=== PATIENT | female | born 1965 | race Caucasian/White ===

== ENCOUNTER 2016-06-04 08:49 | Emergency (ER) | payer OTHER ==
[2016-06-04] MEDS ORDERED: IPRATROPIUM/ALBUTEROL 3 ML DEYVIAL IH ONE (09:07)
[2016-06-04] MEDS ORDERED: predniSONE 20 MG TAB PO ONE (09:10)
--- NOTE | 2016-06-04 09:21 | EDPHY ---
H & P Smoking Status: Never smoked Time Seen by Provider: 06/04/16 09:09 HPI/ROS: CHIEF COMPLAINT: I think I have the flu HISTORY OF PRESENT ILLNESS: 50-year-old female Indian speaking only, usage of cap inspector at bedside, complaining of 7 days of cough, congestion, dyspnea. She has prior history of asthma. Does not have an inhaler. The triage note states chest pain. Specifically inquired at time of interview was she has chest pain she denies this. No back pain. No abdominal pain. No cardiac history. No thromboembolic history. REVIEW OF SYSTEMS: A ten point review of systems was performed and is negative with the exception of the items mentioned in the HPI PAST MEDICAL & SURGICAL HISTORY: Asthma. No influenza vaccination this season SOCIAL HISTORY: nonsmoker. No cocaine or illicit drug use. FAMILY HISTORY: No family history of coronary artery disease/AK/coagulopathic disorder PHYSICAL EXAM (Prior to examination, patient consented to physical exam, hands were washed and my usual and customary physical exam procedures followed) 1) GENERAL: Well-developed, well-nourished, alert and oriented. Appears nontoxic 2) HEAD: Normocephalic, atraumatic 3) HEENT: Pupils equal, round, reactive to light bilaterally. Sclera anicteric. Nasopharynx: Congestion. Oropharynx: Clear no trismus no drooling no tonsillar enlargement or exudate Ears bilaterally with normal tympanic membranes. 4) NECK: Full range of motion, no meningeal signs. 5) LUNGS: bilateral end-expiratory wheeze. no rhonchi, no retractions. 6) HEART: Regular rate and rhythm, no murmur, no heave, no gallop. 7) ABDOMEN: No guarding, no rebound, no focal tenderness, negative McBurney's, negative Tillman's, negative Rovsing's, negative peritoneal sign, 8) MUSCULOSKELETAL: Moving all extremities, no focal areas of tenderness, no obvious trauma. No peripheral edema or discoloration. 9) BACK: No CVA tenderness, no midline vertebral tenderness, no fluctuance, no step-off, no obvious trauma, no visual or palpable abnormality. 10) SKIN: No rash, no petechiae. DIFFERENTIAL DIAGNOSIS: In no particular include but limited to pulmonary embolus, pneumonia, bronchitis, influenza (Yennifer Arauz Krystina) Constitutional: Initial Vital Signs Temperature (C) 36.7 C 06/04/16 08:50 Heart Rate 69 06/04/16 08:50 Respiratory Rate 18 06/04/16 08:50 Blood Pressure 145/81 H 06/04/16 08:50 O2 Sat (%) 95 06/04/16 08:50 O2 Delivery Mode Room Air Allergies/Adverse Reactions: No Known Allergies Allergy (Verified 06/04/16 08:50) Home Medications: Medication Instructions Recorded AZITHROMYCIN [Z-PACK] 500 mg PO DAILY #1 packet 06/04/16 Albuterol Sulfate [Proventil Hfa] 6.7 gm IH 06/04/16 Albuterol [Proventil Inhaler HFA 1 - 2 puffs IH Q4PRN PRN #1 mdi 06/04/16 (*)] Tiotropium Inhaler [Spiriva 18 mcg IH DAILY 06/04/16 Handihaler] predniSONE [Prednisone] 60 mg PO DAILY #9 tablet 06/04/16 MDM/Departure - MDM Diagnostics: An EKG obtained and was read and documented in trace view. Please see trace view for full reading and report. Sinus rhythm, no ischemic changes. (Kale Brennan) Medications Given: Discontinued Medications Albuterol/Ipratropium (Duoneb) 3 ml IH EDNOW ONE Stop: 06/04/16 09:08 Last Admin: 06/04/16 09:30 Dose: 3 ml Prednisone (Prednisone) 60 mg PO EDNOW ONE Stop: 06/04/16 09:11 Last Admin: 06/04/16 09:30 Dose: 60 mg ED Course/Re-evaluation: 10:38 a.m.: Patient re-evaluated after DuoNeb treatment states that she is feeling improvement in her dyspnea. She initially stated that she had not been experiencing chest pain at this time however she informs me that for the past 4 days she has been experiencing midsternal chest pain which has been persistent. Will obtain further diagnostic studies on patient at this time 11:48 a.m.: Re-evaluation. She is feeling improvement. Discussed her diagnostic studies including negative chest x-ray, EKG, D-dimer, troponin. I think that pulmonary embolus, AK, less than likely in this patient. More than likely etiology of her symptoms acute respiratory etiology. Plan will be discharged with azithromycin, prednisone, albuterol. Usual customary respiratory and chest precautions provided. She feels comfortable being discharged. Discussed case with Dr. Brennan in the ER. (Yennifer Arauz) - Depart Disposition: Home, Routine, Self-Care Clinical Impression: Acute bronchitis Qualifiers: Bronchitis organism: other organism Qualifier Code: (J20.8) Acute bronchitis due to other specified organisms Condition: Good Instructions: Acute Bronchitis (ED) Additional Instructions: Seek medical attention if you develop new or worsening chest pain, if you develop new or worsening shortness of breath, or any other symptoms that concern you. Busque ayuda medica si desarolla dolor de pecho nuevo o si vera empeora, si le falta la respiracion o esta empeora, o cualquier otro sintoma que le preocupe. Prescriptions: Albuterol [Proventil Inhaler HFA (*)] 1 - 2 puffs IH Q4PRN PRN #1 mdi PRN Reason: Cough, Moderate AZITHROMYCIN [Z-PACK] 500 mg PO DAILY #1 packet predniSONE [Prednisone] 60 mg PO DAILY #9 tablet Referrals: [facility] [Outside] - 2-3 days, call for appt. Print Language: Indian
--- NOTE | 2016-06-04 10:12 | DX ---
Chest, PA and Lateral Views June 04, 2016 8:51 a.m. Clinical History: 50-year-old female with chest pain. Comparison Study: Chest, dated February 15, 2014. Findings: The cardiac and mediastinal silhouette is normal. There is no focal infiltrate, atelectasis , pleural effusion, peripheral interstitial edema, or pneumothorax. The lungs are well-expanded, with an inspiratory depth to the 11th posterior rib level. The trachea is midline. The osseous structures are again notable for a couple of mild superior cortical endplate compression deformities, which are unchanged. Impression: No acute abnormality, or substantial change from February 15, 2014.
--- NOTE | 2016-06-04 10:51 | CPEKG ---
Heart Rate: 71 RR Interval: 845 P-R Interval: 152 QRSD Interval: 72 QT Interval: 428 QTC Interval: 466 P [place]: 34 QRS [place]: -1 T Wave [place]: 37 EKG Severity - NORMAL ECG - EKG Impression: SINUS RHYTHM Electronically Signed By: Kale Brennan 04-Jun-2016 11:48:19
[2016-06-04 11:03] LABS: % IMMATURE GRANULYOCYTES 0.4 % (0.0-1.1); ABSOLUTE IMMATURE GRANULOCYTES 0.03 10^3/uL (0.00-0.10); ADD DIFF? NO; ADD MORPH? NO; ADD SCAN? NO; ATYPICAL LYMPHOCYTE FLAG 0 (0-99); FRAGMENT RBC FLAG 0 (0-99); HEMATOCRIT 43.3 % (38.0-47.0); HEMOGLOBIN 15.1 g/dL (12.6-16.3); LEFT SHIFT FLG 0 (0-99); LIPEMIA HEMOLYSIS FLAG 90 (0-99); MEAN CELL HEMOGLOBIN 30.3 pg (27.9-34.1); MEAN CELL HEMOGLOBIN CONCENTR. 34.9 g/dL (32.4-36.7); MEAN CELL VOLUME 86.8 fL (81.5-99.8); MEAN PLATELET VOLUME 9.5 fL (8.7-11.7); PLATELET CLUMPS FLAG 10 (0-99); PLATELET COUNT 252 10^3/uL (150-400); RED BLOOD CELL COUNT 4.99 10^6/uL (4.18-5.33)
[2016-06-04 11:21] LABS: ANION GAP 11 mEq/L (8-16); CALCIUM 8.9 mg/dL (8.5-10.4); CARBON DIOXIDE 25 mEq/l (22-31); CHLORIDE 107 mEq/L (97-110); CREATININE 0.5 mg/dL (0.6-1.0); GLOMERULAR FILTRATION RATE > 60; GLUCOSE 97 mg/dL (70-100); POTASSIUM 4.1 mEq/L (3.5-5.2); SODIUM 143 mEq/L (134-144)
[2016-06-04 11:33] LABS: TROPONIN I < 0.012 ng/mL (0-0.034)
[2016-06-04 12:07] VITALS: BP 143/84; PULSE 78; RESP 16; TEMP 97.9; O2SAT 96
== END 2016-06-04 12:16 | disposition home or self-care (01) ==
DX: J20.8 Acute bronchitis due to other specified organisms (principal); J45.909 Unspecified asthma, uncomplicated

== ENCOUNTER 2016-06-05 16:01 | Emergency (ER) | payer OTHER ==
[2016-06-05] MEDS ORDERED: NS 1,000 ML IV ONE (16:36)
[2016-06-05] MEDS ORDERED: KETOROLAC 30 MG/1 ML SDV IVP ONE (16:36)
[2016-06-05] MEDS ORDERED: METOCLOPRAMIDE 10 MG/2 ML VIAL IVP ONE (16:36)
[2016-06-05] MEDS ORDERED: ONDANSETRON DISINTEGRATING 4 MG TAB PO ONE (16:37)
--- NOTE | 2016-06-05 16:41 | EDPHY ---
H & P Stated Complaint: VALDES Source: Patient - Personal History LMP (Females 10-55): 8-14 Days Ago Current Tetanus/Diphtheria Vaccine: Unsure Current Tetanus Diphtheria and Acellular Pertussis (TDAP): Unsure - Medical/Surgical History Hx Asthma: Yes Hx Chronic Respiratory Disease: No Hx Diabetes: No Hx Cardiac Disease: No Hx Renal Disease: No Hx Cirrhosis: No Hx Alcoholism: No Hx HIV/AIDS: No Hx Splenectomy or Spleen Trauma: No Other PMH: appendectomy, x2, tubal ligation, migraines, asthma - Social History Smoking Status: Never smoked Alcohol Use: None Drug Use: None Time Seen by Provider: 06/05/16 16:37 HPI/ROS: HPI: 50-year-old female presents to emergency department with chief concern migraine headache. Reports a 10/10 throbbing headache in her entire head associated with nausea and photophobia that onset yesterday morning mildly. By yesterday afternoon it grew severe. Was evaluated in the emergency department yesterday and diagnosed with bronchitis. She did not have a headache at that time. Denies physical trauma. Denies fever, dizziness, visual changes, neck pain, shortness of breath, chest pain, abdominal pain, vomiting, diarrhea, rash. No aggravating or alleviating factors. This headache is consistent with other migraine headaches. This is not the worst headache of her life. Her reports that she gets migraine headaches when she gets sick. ROS:10 point review of systems is negative other than as stated in HPI (Yovana Bennett) - Physical Exam Exam: Vital signs stable, reviewed by me General: Awake, calm, cooperative. No acute distress. EENT: PERRLA. EOMI. No papilledema. no conjunctival injection or hemorrhage. TMs intact, translucent. No evidence of bleeding or otorrhea. Nasal septum midline, nasal mucosa pink. no evidence of drainage. Uvula midline, pharynx without redness. Neck: No midline tenderness, full range of motion, no meningismus Resp: Breathing unlabored. Lungs clear to auscultation bilaterally. CV: HRR. S1S2. No MRG. GI: Abdomen soft, nontender. Bowel sounds normoactive and positive x4 quadrants. Back: No midline thoracic or lumbar tenderness. Skin: Warm, dry. No rashes noted. Capillary refill less than 2 seconds. Musculoskeletal: Strength equal and 5+ in all 4 extremities. Neuro: No focal neuro deficit. CN II through XII intact. Rapid alternating hand movements intact. Finger to nose intact. Heel to natarajan intact. Negative Romberg. Negative pronator drift. Gait even and steady. Memory and recall of 2/3 objects at 5 minutes intact. Upper and lower extremity DTRs 2+. Extremities: Full range of motion. (Yovana Bennett) Constitutional: Initial Vital Signs Temperature (C) 36.9 C 06/05/16 16:03 Heart Rate 93 06/05/16 16:03 Respiratory Rate 14 06/05/16 16:03 Blood Pressure 153/94 H 06/05/16 16:03 O2 Sat (%) 95 06/05/16 16:03 O2 Delivery Mode Room Air O2 (L/minute) 2 Allergies/Adverse Reactions: No Known Allergies Allergy (Verified 06/04/16 08:50) Home Medications: Medication Instructions Recorded AZITHROMYCIN [Z-PACK] 500 mg PO DAILY #1 packet 06/04/16 Albuterol Sulfate [Proventil Hfa] 6.7 gm IH 06/04/16 Albuterol [Proventil Inhaler HFA 1 - 2 puffs IH Q4PRN PRN #1 mdi 06/04/16 (*)] Tiotropium Inhaler [Spiriva 18 mcg IH DAILY 06/04/16 Handihaler] predniSONE [Prednisone] 60 mg PO DAILY #9 tablet 06/04/16 oxyCODONE/APAP 5/325 [Percocet 1 - 2 tab PO Q6H PRN #6 tab 06/05/16 5/325 (*)] Medical Decision Making ED Course/Re-evaluation: 1630:50-year-old female presents to emergency department with chief concern migraine headache. Vitals are stable. She has no focal neuro deficits. She has had no head trauma. She is afebrile. She is nontoxic. She has a history of migraine headaches. We will treat her with migraine cocktail as per her old records this has worked in the past. 0: Headache is now 5/10 down from 10/10. Nausea has resolved. Given 1 mL IV Dilaudid. 2014: Headache now 2/10. Nausea entirely resolved. Phlebotomy Manager present. Patient discharged with oral Percocet. Return precautions given. (Yovana Bennett ) Differential Diagnosis: Headache including but not limited to migraine headache, subarachnoid hemorrhage, tension headache and infectious causes such as meningitis, pharyngitis and sinusitis. (Yovana Bennett) Other Provider: This patient was evaluated and treated by the nurse practitioner. I have reviewed the chart and agree with the treatment plan as documented. (Sona Ayon) - Data Points Laboratory Results: Laboratory Results 06/05/16 16:20 06/05/16 16:20 Medications Given: Discontinued Medications Diphenhydramine HCl (Benadryl Injection) 25 mg IVP EDNOW ONE Stop: 06/05/16 16:38 Last Admin: 06/05/16 16:47 Dose: 25 mg Hydromorphone HCl (Dilaudid) 1 mg IVP EDNOW ONE Stop: 06/05/16 17:30 Last Admin: 06/05/16 17:35 Dose: 1 mg Sodium Chloride (Ns) 1,000 mls @ 0 mls/hr IV ONCE ONE PRN Reason: Wide Open Stop: 06/05/16 16:37 Last Admin: 06/05/16 16:48 Dose: 1,000 mls Ketorolac Tromethamine (Toradol) 30 mg IVP EDNOW ONE Stop: 06/05/16 16:37 Last Admin: 06/05/16 16:48 Dose: 30 mg Metoclopramide HCl (Reglan Injection) 10 mg IVP EDNOW ONE Stop: 06/05/16 16:37 Last Admin: 06/05/16 16:48 Dose: 10 mg Ondansetron HCl (Zofran Odt) 4 mg PO EDNOW ONE Stop: 06/05/16 16:38 Last Admin: 06/05/16 16:47 Dose: 4 mg Oxycodone/Acetaminophen (Percocet 5/325mg Prepack#4) 1 btl TAKEHOME EDNOW ONE Stop: 06/05/16 20:14 Last Admin: 06/05/16 20:19 Dose: 1 btl Departure - Departure Disposition: Home, Routine, Self-Care Clinical Impression: Migraine Condition: Good Instructions: Oxycodone/Acetaminophen (By mouth), Migraine Headache (ED) Additional Instructions: Plan: You have a migraine headache. We gave you medicine to abort the headache. No driving today at all. Clear liquids if nauseated-advance to bland diet as tolerated. Return if any symptoms unusual for typical migraine. Rest and cool dark room. Followup with your primary care provider tomorrow-When you call to schedule appointment, please let the office know you are an "ER follow up" appointment" May use 1-2 Percocet every 6 hours as needed--Never drink or drive while taking this medication. This medication impairs decision making capacity so do not work or sign important documents while taking. This medication its constipating so drink plenty of fluids and consider an [id number] stool softener such as docusate sodium (Colace) while taking this medication. This medication has addictive properties. You should use the least amount for the shortest amount of time. [facility] do not refill narcotic pain medication prescriptions. This is a hospital policy. You will need to follow up as indicated for recheck for further narcotic refills. Return promptly for recheck for dizziness, visual changes, worsening headache, fever, neck pain, or intractable vomiting. Plan: Tiene anita migraa. Le administramos medicamento para abortar el dolor. No maneje hoy. - [place] liquidos fernanda si tiene nausea - avance a anita dieta blanda a lori lo pueda tolerar. - Regrese si tiene sintomas inusuales a los de migraa tipica. - Descance en anita habitacion fresca y oscura. - Kaden anita joel de seguimiento con moraes doctor maana, cuando llame para hacer la joel, por favor digales que es anita joel de seguimiento de la huey de emergencia. - Puede scott el Percocet cada 6 horas si lo necesita - Nunca tome alcohol o maneje mientras jose vera medecamento. Vera medicamento afecta la capacidad para scott decisiones asi es que no trabaje o firme documentos importantes mientras lo jose. Vera medicamento tambien estrie, asi es que debe scott muchos liquidos y puede conciderar scott un laxante sin receta lori el ducosate de sodio (Colace) mientras jose vera medicamento. Vera medicamento tieme propiedades adictivas. Debe usar lo menos posible por un corto periodo de tiempo. La huey de emergencia y la huey de urgencias de [facility] no volvemos a recetar narcoticos para dolor. Esta es anita poliza del hospital. Usted necesitara hacer anita joel de seguimiento con moraes doctor a lori se le indico para anita nueva revision y para llenarle la receta de narcoticos. - Regrese antes de moraes joel si tiene mareos, cambios de la vista, si empeora moraes dolor de daphney, si tiene fiebre, dolor en el merlyn, o vomito incontrolable. [place]errals: [place],. [Primary Care Provider] - As per Instructions [facility] [Outside] - As per Instructions Prescriptions: oxyCODONE/APAP 5/325 [Percocet 5/325 (*)] 1 - 2 tab PO Q6H PRN #6 tab PRN Reason: Pain, Severe Print Language: Montenegrin
[2016-06-05 16:47] LABS: % IMMATURE GRANULYOCYTES 0.5 % (0.0-1.1); ABSOLUTE IMMATURE GRANULOCYTES 0.06 10^3/uL (0.00-0.10); ADD DIFF? NO; ADD MORPH? NO; ADD SCAN? NO; ATYPICAL LYMPHOCYTE FLAG 0 (0-99); FRAGMENT RBC FLAG 0 (0-99); HEMATOCRIT 46.5 % (38.0-47.0); HEMOGLOBIN 16.3 g/dL (12.6-16.3); LEFT SHIFT FLG 0 (0-99); LIPEMIA HEMOLYSIS FLAG 90 (0-99); MEAN CELL HEMOGLOBIN 30.8 pg (27.9-34.1); MEAN CELL HEMOGLOBIN CONCENTR. 35.1 g/dL (32.4-36.7); MEAN CELL VOLUME 87.9 fL (81.5-99.8); MEAN PLATELET VOLUME 9.5 fL (8.7-11.7); PLATELET CLUMPS FLAG 0 (0-99); PLATELET COUNT 312 10^3/uL (150-400); RED BLOOD CELL COUNT 5.29 10^6/uL (4.18-5.33); RED CELL DISTRIBUTION WIDTH 12.1 % (11.5-15.2)
[2016-06-05 16:52] LABS: ANION GAP 14 mEq/L (8-16); CALCIUM 9.7 mg/dL (8.5-10.4); CARBON DIOXIDE 22 mEq/l (22-31); CHLORIDE 106 mEq/L (97-110); CREATININE 0.5 mg/dL (0.6-1.0); GLOMERULAR FILTRATION RATE > 60; GLUCOSE 134 mg/dL (70-100); POTASSIUM 4.5 mEq/L (3.5-5.2); SODIUM 142 mEq/L (134-144)
[2016-06-05] MEDS ORDERED: HYDROmorphONE/DILAUDID 1 MG/ML SYR IVP ONE (17:29)
[2016-06-05] MEDS ORDERED: OXYCODONE/APAP 5/325MG PREPACK#4 BTL TAKEHOME ONE (20:13)
[2016-06-05 20:49] VITALS: BP 128/87; PULSE 71; RESP 16; TEMP 98.1; O2SAT 93
== END 2016-06-05 20:49 | disposition home or self-care (01) ==
DX: G43.909 Migraine, unspecified, not intractable, without status migrainosus (principal); J45.909 Unspecified asthma, uncomplicated
CPT/HCPCS: 96374; J1170; J1885; J2765

== ENCOUNTER 2016-06-26 08:38 | Emergency (ER) | payer OTHER ==
[2016-06-26 08:43] VITALS: TEMP 98.2
[2016-06-26] MEDS ORDERED: ONDANSETRON 4 MG/2 ML VIAL IVP ONE ×2 (08:59→13:01)
[2016-06-26] MEDS ORDERED: fentaNYL 100 MCG/2 ML INJ IVP ONE (08:59)
[2016-06-26] MEDS ORDERED: NS 1,000 ML IV ONE (09:09)
[2016-06-26 09:12] LABS: COLOR RED; LEUKOCYTE ESTERASE,URINE 1+ (NEGATIVE); NITRITE,URINE NEGATIVE (NEGATIVE)
[2016-06-26 09:14] LABS: % IMMATURE GRANULYOCYTES 0.1 % (0.0-1.1); ABSOLUTE IMMATURE GRANULOCYTES 0.01 10^3/uL (0.00-0.10); ADD DIFF? NO; ADD MORPH? NO; ADD SCAN? NO; ATYPICAL LYMPHOCYTE FLAG 0 (0-99); FRAGMENT RBC FLAG 0 (0-99); HEMATOCRIT 42.7 % (38.0-47.0); HEMOGLOBIN 14.6 g/dL (12.6-16.3); LEFT SHIFT FLG 0 (0-99); LIPEMIA HEMOLYSIS FLAG 90 (0-99); MEAN CELL HEMOGLOBIN 30.2 pg (27.9-34.1); MEAN CELL HEMOGLOBIN CONCENTR. 34.2 g/dL (32.4-36.7); MEAN CELL VOLUME 88.4 fL (81.5-99.8); MEAN PLATELET VOLUME 9.1 fL (8.7-11.7); PLATELET CLUMPS FLAG 0 (0-99); PLATELET COUNT 262 10^3/uL (150-400); RED BLOOD CELL COUNT 4.83 10^6/uL (4.18-5.33); RED CELL DISTRIBUTION WIDTH 12.4 % (11.5-15.2)
[2016-06-26 09:21] LABS: BACTERIA TRACE /hpf (NONE SEEN); RBC,URINE 50-182 /hpf (0-3)
[2016-06-26 09:27] LABS: ANION GAP 9 mEq/L (8-16); CALCIUM 8.6 mg/dL (8.5-10.4); CARBON DIOXIDE 22 mEq/l (22-31); CHLORIDE 108 mEq/L (97-110); CREATININE 0.5 mg/dL (0.6-1.0); GLOMERULAR FILTRATION RATE > 60; GLUCOSE 95 mg/dL (70-100); POTASSIUM 4.2 mEq/L (3.5-5.2); SODIUM 139 mEq/L (134-144)
--- NOTE | 2016-06-26 09:35 | EDPHY ---
H & P Stated Complaint: R flank & RLQ pain denies urinary issues Time Seen by Provider: 06/26/16 09:26 HPI/ROS: CHIEF COMPLAINT: Right flank to right abdomen pain HISTORY OF PRESENT ILLNESS: 50-year-old female complaining of 5 days of right flank to right abdominal pain. No fever no chills. No dysuria no increased urinary frequency. Positive nausea. No vomiting. Bowel movements normal. She does have mild vaginal spotting. No fever or chills. No rash. No trauma. PRIMARY CARE PROVIDER: [facility] REVIEW OF SYSTEMS: A ten point review of systems was performed and is negative with the exception of the items mentioned in the HPI PAST MEDICAL & SURGICAL HISTORY: no abdominal surgery history SOCIAL HISTORY: nonsmoker PHYSICAL EXAM (Prior to examination, patient consented to physical exam, hands were washed and my usual and customary physical exam procedures followed) 1) GENERAL: Well-developed, well-nourished, alert and oriented. Appears uncomfortable 2) HEAD: Normocephalic, atraumatic 3) HEENT: Pupils equal, round, reactive to light bilaterally. Sclera anicteric. 4) NECK: Full range of motion, no meningeal signs. 5) LUNGS: Clear auscultation bilaterally, no wheezes, no rhonchi, no retractions. 6) HEART: Regular rate and rhythm, no murmur, no heave, no gallop. 7) ABDOMEN: No guarding, no rebound, no focal tenderness, negative McBurney's, negative Tillman's, negative Rovsing's, negative peritoneal sign, I am unable to elicit any abdominal pain on exam 8) MUSCULOSKELETAL: Moving all extremities, no focal areas of tenderness, no obvious trauma. No peripheral edema or discoloration. 9) BACK: positive left CVA tenderness, no midline vertebral tenderness, no fluctuance, no step-off, no obvious trauma, no visual or palpable abnormality. 10) SKIN: No rash, no petechiae. 11) Psychiatric: Patient is oriented X 3, there is no agitation. DIFFERENTIAL DIAGNOSIS: in no particular order including but limited to nephrolithiasis, pyelonephritis, acute cholecystitis - Personal History LMP (Females 10-55): 8-14 Days Ago Current Tetanus/Diphtheria Vaccine: Unsure Current Tetanus Diphtheria and Acellular Pertussis (TDAP): Unsure - Medical/Surgical History Hx Asthma: Yes Hx Chronic Respiratory Disease: No Hx Diabetes: No Hx Cardiac Disease: No Hx Renal Disease: No Hx Cirrhosis: No Hx Alcoholism: No Hx HIV/AIDS: No Hx Splenectomy or Spleen Trauma: No Other PMH: appendectomy, x2, tubal ligation, migraines, asthma - Social History Smoking Status: Never smoked Constitutional: Initial Vital Signs Temperature (C) 36.8 C 06/26/16 08:40 Heart Rate 81 06/26/16 08:40 Respiratory Rate 16 06/26/16 08:40 Blood Pressure 130/78 H 06/26/16 08:40 O2 Sat (%) 96 06/26/16 08:40 O2 Delivery Mode Nasal Cannula O2 (L/minute) 2 Allergies/Adverse Reactions: No Known Allergies Allergy (Verified 06/04/16 08:50) Home Medications: Medication Instructions Recorded AZITHROMYCIN [Z-PACK] 500 mg PO DAILY #1 packet 06/04/16 Albuterol Sulfate [Proventil Hfa] 6.7 gm IH 06/04/16 Albuterol [Proventil Inhaler HFA 1 - 2 puffs IH Q4PRN PRN #1 mdi 06/04/16 (*)] Tiotropium Inhaler [Spiriva 18 mcg IH DAILY 06/04/16 Handihaler] predniSONE [Prednisone] 60 mg PO DAILY #9 tablet 06/04/16 oxyCODONE/APAP 5/325 [Percocet 1 - 2 tab PO Q6H PRN #6 tab 06/05/16 5/325 (*)] Cephalexin [Keflex] 500 mg PO TID 7 Days 06/26/16 Medical Decision Making - Diagnostics Imaging: CT Scan of the Urinary Tract (Abdomen and Pelvis Without Contrast) Clinical Indications: Right flank pain. Technique: Multidetector helical CT imaging was performed from the lung bases to the urinary bladder without contrast. Axial images are obtained at 5 mm intervals and reformatted at 1.5 mm thickness. The examination is reviewed on the workstation at multiple window/ level settings. Sagittal and coronal reformations are performed. Dose reduction techniques were utilized for this examination. Comparison to prior contrast-enhanced CT abdomen and pelvis January 18, 2014. Findings: Abdomen: There is no nephrolithiasis. The ureters appear normal throughout their course in the abdomen. There is no hydronephrosis. The imaged noncontrast portions of the liver, spleen, gallbladder, pancreas and adrenals are negative for acute abnormality. The liver is enlarged measuring 20 cm in cephalocaudal height. The aorta tapers normally. The lung bases are clear. Pelvis: The bladder contour is normal and the distal ureters are not dilated. An abnormal appendix is not visualized and no right lower quadrant inflammatory process is suspected. Previously identified right ovarian cyst has now increased in size and measures 4 cm in diameter. An IUD remains in place. There is no free fluid seen. Impression: 1. Negative for nephrolithiasis or obstructive uropathy. 2. 4 cm diameter right ovarian cyst. 3. Hepatomegaly. 4. See above report for additional findings. A preliminary report was called to MASOOD Marrufo, at 1015 hours in the Emergency Department. Attention: This CT examination is specifically designed to evaluate patients who are clinically suspected of having acute obstructive uropathy. This examination does not use radiographic contrast , and as such, provides only a limited evaluation of the abdomen, pelvis and retroperitoneum. Dictated By: Lyndon Rivera MD Images reviewed by myself Pelvic Ultrasound (Transabdominal and Endovaginal) with color flow and spectral Doppler History: Right-sided abdominal pain. Possible ovarian cyst.. Comparison: Prior pelvic ultrasound from May 16, [address] without contrast study performed earlier today of the abdomen and pelvis. Findings: The pelvis was first examined through a moderately distended bladder from TRANSABDOMINAL approach. UTERUS: Size: 11.6 x 4.3 x 6.8 cm in longitudinal, AP, and transverse projections. Orientation: Anteflexed. Uterine Masses: There is some heterogeneous echotexture along the posterior aspect of the endometrial stripe in the uterine body that could represent submucosal fibroid. This displaces the endometrial stripe anteriorly.. Endometrium: Relatively normal measuring about 4 mm transabdominal measurement. IUD is faintly visualized. ADNEXA: 3.8 cm right adnexal cyst is noted with smooth mccoy. The left ovary has a normal contour.. The pelvis was then evaluated from ENDOVAGINAL approach after the bladder was emptied to better evaluate the uterus and adnexa. UTERUS: Orientation: Anteverted. Masses: Uterine fibroids are suspected as follows: Right side of the lower uterine segment, intramural fibroid, 2 x 1.5 x 2 cm Posterior uterine body submucosal location splaying the endometrial stripe anteriorly, 2.8 x 2.2 x 2.1 cm. Endometrium: Normal measuring 6 mm in thickness. IUD is in good position within the endometrial canal. ADNEXA: Simple appearing ovarian cyst on the right measuring 3.4 x 3.2 x 3.2 cm. No evidence of mural nodularity. Normal-appearing left ovary. Right ovary size: 4.5 x 3.9 x 3.7 cm Left ovary size: 2.3 x 1.2 x 1.6 cm Color flow and spectral Doppler: Normal color flow imaging with normal Doppler waveform bilaterally. Free fluid: None. Other findings: None. Impression: 1. Simple cyst right ovary. 2. Submucosal fibroid posterior aspect of the uterine body splaying the endometrial stripe anteriorly. 3. Intramural fibroid right side of the lower uterine segment. 4. IUD in good position. Findings were discussed by telephone with Lam Arauz PA-C at 1310 hrs. Dictated By: Mason Cohen MD Images reviewed by myself ED Course/Re-evaluation: 10:20 a.m.: Re-evaluation: Discussed her imaging results. Recommended pelvic ultrasound gallbladder ultrasound. 2 p.m.: Re-evaluation. She remains nontender in the right lower quadrant, negative McBurney's, negative Tillman's. Discussed her imaging results. She is noted to have ovarian cyst with no ovarian torsion as well as uterine fibroid. No signs of nephrolithiasis a. We discussed possibility of pyelonephritis with her CVA tenderness and bacteriuria which is present however she is also noted to have epithelial cells present. Urine has been cultured. Given Rocephin and started on Keflex. Her pain is controlled. Plan will be discharge with close follow-up at the [facility]. Doubt acute surgical abdominal pathology. Although the appendix has not been visualized on CT scan, in conversation with radiologist there were no indirect signs of acute appendicitis, no signs of acute inflammatory disorder in the right lower quadrant on CT imaging. In addition, doubt acute acute cholecystitis. - Data Points Laboratory Results: Laboratory Results 06/26/16 09:02 06/26/16 09:02 06/26/16 06/26/16 06/26/16 09:02 09:00 08:50 WBC 7.26 10^3/uL (3.80-9.50) RBC 4.83 10^6/uL (4.18-5.33) Hgb 14.6 g/dL (12.6-16.3) Hct 42.7 % (38.0-47.0) MCV 88.4 fL (81.5-99.8) MCH 30.2 pg (27.9-34.1) MCHC 34.2 g/dL (32.4-36.7) RDW 12.4 % (11.5-15.2) Plt Count 262 10^3/uL (150-400) MPV 9.1 fL (8.7-11.7) Neut % (Auto) 66.4 % (39.3-74.2) Lymph % (Auto) 27.4 % (15.0-45.0) [place] % (Auto) 4.4 L % (4.5-13.0) Eos % (Auto) 1.1 % (0.6-7.6) Baso % (Auto) 0.6 % (0.3-1.7) Nucleat RBC Rel Count 0.0 % (0.0-0.2) Absolute Neuts (auto) 4.82 10^3/uL (1.70-6.50) Absolute Lymphs (auto) 1.99 10^3/uL (1.00-3.00) Absolute Monos (auto) 0.32 10^3/uL (0.30-0.80) Absolute Eos (auto) 0.08 10^3/uL (0.03-0.40) Absolute Basos (auto) 0.04 10^3/uL (0.02-0.10) Absolute Nucleated RBC 0.00 10^3/uL (0-0.01) Immature Gran % 0.1 % (0.0-1.1) Immature Gran # 0.01 10^3/uL (0.00-0.10) Sodium 139 mEq/L (134-144) Potassium 4.2 mEq/L (3.5-5.2) Chloride 108 mEq/L (97-110) Carbon Dioxide 22 mEq/l (22-31) Anion Gap 9 mEq/L (8-16) BUN 7 mg/dL (7-23) Creatinine 0.5 L mg/dL (0.6-1.0) Estimated GFR > 60 Glucose 95 mg/dL (70-100) Calcium 8.6 mg/dL (8.5-10.4) Total Bilirubin 0.7 mg/dL (0.1-1.4) Conjugated Bilirubin 0.2 mg/dL (0.0-0.5) Unconjugated Bilirubin 0.5 mg/dL (0.0-1.1) AST 27 IU/L (14-46) ALT 34 IU/L (9-52) Alkaline Phosphatase 60 IU/L (38-126) Total Protein 6.5 g/dL (6.3-8.2) Albumin 3.5 g/dL (3.5-5.0) Lipase 66.0 IU/L (23-300) Beta HCG, Qual NEGATIVE Urine Color RED Urine Appearance HAZY Urine pH 9.0 H (5.0-7.5) Ur Specific [place] 1.011 (1.002-1.030) Urine Protein 2+ H (NEGATIVE) Urine Ketones NEGATIVE (NEGATIVE) Urine Blood 3+ H (NEGATIVE) Urine Nitrate NEGATIVE (NEGATIVE) Urine Bilirubin NEGATIVE (NEGATIVE) Urine Urobilinogen NEGATIVE EU (0.2-1.0) Ur Leukocyte Esterase 1+ H (NEGATIVE) Urine RBC 50-182 H /hpf (0-3) Urine WBC 10-15 H /hpf (0-3) Ur Epithelial Cells 2+ H /lpf (NONE-1+) Urine Bacteria TRACE H /hpf (NONE SEEN) Ur Culture Indicated? INDICATED H (NI) Urine Glucose NEGATIVE (NEGATIVE) Medications Given: Discontinued Medications Fentanyl (Sublimaze) 100 mcg IVP EDNOW ONE Stop: 06/26/16 09:00 Last Admin: 06/26/16 09:08 Dose: 100 mcg Hydromorphone HCl (Dilaudid) 1 mg IVP EDNOW ONE Stop: 06/26/16 10:08 Last Admin: 06/26/16 10:14 Dose: 1 mg Sodium Chloride (Ns) 1,000 mls @ 0 mls/hr IV EDNOW ONE PRN Reason: Wide Open Stop: 06/26/16 09:10 Last Admin: 06/26/16 09:10 Dose: 1,000 mls Ondansetron HCl (Zofran) 4 mg IVP EDNOW ONE Stop: 06/26/16 09:00 Last Admin: 06/26/16 09:09 Dose: 4 mg Ondansetron HCl (Zofran) 4 mg IVP EDNOW ONE Stop: 06/26/16 13:02 Last Admin: 06/26/16 13:07 Dose: 4 mg Departure - Departure Disposition: Home, Routine, Self-Care Clinical Impression: Pyelonephritis Condition: Good Instructions: Urinary Tract Infection in Women (ED) Additional Instructions: Return to the ER immediately if you experience fevers/chills, flu like symptoms , inability to tolerate oral intake, nausea or vomiting, or any other symptoms that concern you. Regrese al cuarto de emergencias inmediatamente si experimenta fiebre/ escalofrios, sintomas de la gripe, inabilidad para tolerar ingestion oral, o cualquier otro sintoma que le preocupe. Referrals: [facility] [Outside] - 1-2 days without fail Prescriptions: Cephalexin [Keflex] 500 mg PO TID 7 Days Print Language: Micronesian
[2016-06-26 10:06] LABS: ALBUMIN 3.5 g/dL (3.5-5.0); BILIRUBIN,TOTAL 0.7 mg/dL (0.1-1.4); BILIRUBIN-CONJUGATED 0.2 mg/dL (0.0-0.5); BILIRUBIN-UNCONJUGATED 0.5 mg/dL (0.0-1.1); TOTAL PROTEIN 6.5 g/dL (6.3-8.2)
[2016-06-26] MEDS ORDERED: HYDROmorphONE/DILAUDID 1 MG/ML SYR IVP ONE (10:07)
--- NOTE | 2016-06-26 10:20 | CT ---
CT Scan of the Urinary Tract (Abdomen and Pelvis Without Contrast) Clinical Indications: Right flank pain. Technique: Multidetector helical CT imaging was performed from the lung bases to the urinary bladder without contrast. Axial images are obtained at 5 mm intervals and reformatted at 1.5 mm thickness. The examination is reviewed on the workstation at multiple window/level settings. Sagittal and downing l reformations are performed. Dose reduction techniques were utilized for this examination. Compariso n to prior contrast-enhanced CT abdomen and pelvis January 18, 2014. Findings: Abdomen: There is no nephrolithiasis. The ureters appear normal throughout their course in the abdom en. There is no hydronephrosis. The imaged noncontrast portions of the liver, spleen, gallbladder, pancreas and adrenals are negativ e for acute abnormality. The liver is enlarged measuring 20 cm in cephalocaudal height. The aorta ta pers normally. The lung bases are clear. Pelvis: The bladder contour is normal and the distal ureters are not dilated. An abnormal appendix i s not visualized and no right lower quadrant inflammatory process is suspected. Previously identified right ovarian cyst has now increased in size and measures 4 cm in diameter. An IUD remains in place. There is no free fluid seen. Impression: 1. Negative for nephrolithiasis or obstructive uropathy. 2. 4 cm diameter right ovarian cyst. 3. Hepatomegaly. 4. See above report for additional findings. A preliminary report was called to MASOOD Marrufo, at 1015 hours in the Emergency Department. Attention: This CT examination is specifically designed to evaluate patients who are clinically susp ected of having acute obstructive uropathy. This examination does not use radiographic contrast, and as such, provides only a limited evaluation of the abdomen, pelvis and retroperitoneum.
--- NOTE | 2016-06-26 13:02 | US ---
Ultrasound of the Abdomen, Limited History: Right upper quadrant pain. Evaluate for gallstones. Findings: Comparison to prior CT study performed earlier today and prior ultrasound study from Jun. Pancreas: Homogeneous without peripancreatic fluid or ductal dilatation. Liver: Homogeneous in echogenicity without definite focal lesions. Normal size. There is normal colo r flow doppler pattern of the portal vein.. The liver measures 17.6 cm in length. Gallbladder: No shadowing calculi, wall thickening, or pericholecystic fluid. The patient was not sig nificantly tender over the gallbladder fossa. There is a small stable polyp along the posterior gallb ladder wall measuring about 4 x 5 mm. Common bile duct is normal measuring 3-4 mm in diameter. Right Kidney: Normal without hydronephrosis. Aorta: Visualized upper abdominal aorta demonstrates no aneurysm. Intrahepatic IVC: Normal Impression: Stable small gallbladder polyp. Otherwise, normal right upper quadrant ultrasound. Findings were discussed by telephone with Lam Arauz PA-C at 1305 hrs.
--- NOTE | 2016-06-26 13:16 | US ---
Pelvic Ultrasound (Transabdominal and Endovaginal) with color flow and spectral Doppler History: Right-sided abdominal pain. Possible ovarian cyst.. Comparison: Prior pelvic ultrasound from May 16, [address] without contrast study perfo rmed earlier today of the abdomen and pelvis. Findings: The pelvis was first examined through a moderately distended bladder from TRANSABDOMINAL approach. UTERUS: Size: 11.6 x 4.3 x 6.8 cm in longitudinal, AP, and transverse projections. Orientation: Anteflexed. Uterine Masses: There is some heterogeneous echotexture along the posterior aspect of the endometrial stripe in the uterine body that could represent submucosal fibroid. This displaces the endometrial s tripe anteriorly.. Endometrium: Relatively normal measuring about 4 mm transabdominal measurement. IUD is faintly visua lized. ADNEXA: 3.8 cm right adnexal cyst is noted with smooth mccoy. The left ovary has a normal contour.. The pelvis was then evaluated from ENDOVAGINAL approach after the bladder was emptied to better evalu ate the uterus and adnexa. UTERUS: Orientation: Anteverted. Masses: Uterine fibroids are suspected as follows: Right side of the lower uterine segment, intramural fibroid, 2 x 1.5 x 2 cm Posterior uterine body submucosal location splaying the endometrial stripe anteriorly, 2.8 x 2.2 x 2. 1 cm. Endometrium: Normal measuring 6 mm in thickness. IUD is in good position within the endometrial matilde l. ADNEXA: Simple appearing ovarian cyst on the right measuring 3.4 x 3.2 x 3.2 cm. No evidence of mural nodularity. Normal-appearing left ovary. Right ovary size: 4.5 x 3.9 x 3.7 cm Left ovary size: 2.3 x 1.2 x 1.6 cm Color flow and spectral Doppler: Normal color flow imaging with normal Doppler waveform bilaterally. Free fluid: None. Other findings: None. Impression: 1. Simple cyst right ovary. 2. Submucosal fibroid posterior aspect of the uterine body splaying the endometrial stripe anteriorly . 3. Intramural fibroid right side of the lower uterine segment. 4. IUD in good position. Findings were discussed by telephone with Lam Arauz PA-C at 1310 hrs.
[2016-06-26 14:13] VITALS: BP 132/82
[2016-06-26 14:42] VITALS: PULSE 68; RESP 18; O2SAT 100
== END 2016-06-26 15:00 | disposition home or self-care (01) ==
DX: N12 Tubulo-interstitial nephritis, not specified as acute or chronic (principal); J45.909 Unspecified asthma, uncomplicated; B96.89 Other specified bacterial agents as the cause of diseases classified elsewhere; Z90.49 Acquired absence of other specified parts of digestive tract
CPT/HCPCS: 96374; J0696; J1170; J2405; J3010